=== PATIENT | female | born 1995 | race Caucasian/White ===

== ENCOUNTER 2021-04-09 05:41 | Emergency (ER) | payer OTHER ==
[~2021-04-09 05:41] MED LIST: COLACE 100MG C100 MG PO; IBUPROFEN600 MG PO; IMODIUM CAP 2 MG2 MG PO; NORCO 10-325 T1 EACH PO; PRENATAL VITAM1 EAC8 PO; ZOFRAN ODT 4 MG4 MG PO
[2021-04-09 06:32] LABS: HEMOGLOBIN 12.7 gm/dl (12.3-15.3); RED BLOOD COUNT 4.11 M/UL (4.00-5.10); WHITE BLOOD COUNT 7.3 K/UL (4.5-11.0)
[2021-04-09 06:56] LABS: BUN/CREATININE RATIO 18 (0-10)
[2021-04-09] MEDS ORDERED: CEPHALEXIN500 M1 PO (10:06)
[2021-06-01] MEDS ORDERED: PHENERGAN IM25 MG/ML IV (10:56)
== END 2021-04-09 10:25 | disposition home or self-care (01) ==
LOC: ER1 05:41
PROVIDERS: Emergency Medicine
DX: O20.0 Threatened abortion (principal); Z3A.16 16 weeks gestation of pregnancy; Z88.6 Allergy status to analgesic agent
CPT/HCPCS: 76815; 80053; 81001; 84702; 85025; 99284

== ENCOUNTER 2021-05-30 13:20 | Emergency (ER) | payer OTHER ==
[~2021-05-30] VITALS: Ht 157.5 cm; Wt 108.9 kg
[~2021-05-30 13:20] MED LIST changes: +CEPHALEXIN500 M1 PO
[2021-06-01] MEDS ORDERED: PHENERGAN IM25 MG/ML IV (10:56)
== END 2021-05-30 18:05 | disposition home or self-care (01) ==
LOC: ER1 13:20
DX: Z53.8 Procedure and treatment not carried out for other reasons (principal)
CPT/HCPCS: U0002

== ENCOUNTER 2021-08-24 18:16 | Observation (INO) | payer OTHER ==
[~2021-08-24 18:16] MED LIST changes: +PHENERGAN IM25 MG/ML IV
== END 2021-08-24 23:17 | disposition home or self-care (01) ==
LOC: GENOP 18:16 → OB 18:29
PROVIDERS: ADMIT Obstetrics & Gynecology
DX: O47.03 False labor before 37 completed weeks of gestation, third trimester (principal); O99.213 Obesity complicating pregnancy, third trimester; E66.9 Obesity, unspecified; Z3A.34 34 weeks gestation of pregnancy; Z20.822 Contact with and (suspected) exposure to COVID-19
CPT/HCPCS: 81001; 96372; G0378; J0702; U0002

== ENCOUNTER 2021-09-02 21:29 | Outpatient (CLI) | payer OTHER | END 2021-09-02 23:01 | disposition home or self-care (01) | LOC: GENOP 21:29 | DX: O47.03 False labor before 37 completed weeks of gestation, third trimester (principal); O99.891 Other specified diseases and conditions complicating pregnancy; O34.211 Maternal care for low transverse scar from previous cesarean delivery; O36.8130 Decreased fetal movements, third trimester, not applicable or unspecified; Z3A.36 36 weeks gestation of pregnancy; N89.8 Other specified noninflammatory disorders of vagina; O99.213 Obesity complicating pregnancy, third trimester; E66.9 Obesity, unspecified | CPT/HCPCS: 59025 ==

== ENCOUNTER 2021-09-23 07:34 | Inpatient (IN) | payer OTHER ==
[~2021-09-23] VITALS: Ht 157.5 cm; Wt 115.2 kg
[2021-09-23 08:10] LABS: HEMOGLOBIN 10.9 gm/dl (12.3-15.3); RED BLOOD COUNT 3.68 M/UL (4.00-5.10); WHITE BLOOD COUNT 9.8 K/UL (4.5-11.0)
[2021-09-23] MEDS ORDERED: PRENATAL VITAM1 EAC8 PO (08:15)
[2021-09-23] MEDS ORDERED: FERROUS SULFAT325 M2 PO (08:15)
[2021-09-23] MEDS ORDERED: HYDROCODON-ACE1 EAC4 PO (08:48)
[2021-09-23] MEDS ORDERED: IBU600 MG PO (08:48)
[2021-09-23] MEDS ORDERED: COLACE100 MG PO (08:48)
[2021-09-24 01:59] LABS: HEMOGLOBIN 8.8 gm/dl (12.3-15.3)
== END 2021-09-25 15:47 | disposition home or self-care (01) | DRG 788 ==
LOC: OB 07:34
PROVIDERS: ADMIT Obstetrics & Gynecology
PROC: 10D00Z1 Extraction of Products of Conception, Low, Open Approach (ICD-10-PCS; principal; 2021-09-23 12:30)
DX: O34.211 Maternal care for low transverse scar from previous cesarean delivery (principal); Z37.0 Single live birth; Z3A.39 39 weeks gestation of pregnancy; O99.214 Obesity complicating childbirth; E66.01 Morbid (severe) obesity due to excess calories; O36.63X0 Maternal care for excessive fetal growth, third trimester, not applicable or unspecified; O99.344 Other mental disorders complicating childbirth; F41.9 Anxiety disorder, unspecified; Z90.89 Acquired absence of other organs; Z98.890 Other specified postprocedural states; Z82.49 Family history of ischemic heart disease and other diseases of the circulatory system; Z83.3 Family history of diabetes mellitus
CPT/HCPCS: 36415; 81001; 82800; 85014; 85018; 85025; C9113; J0690; J1170; J1650; J2210; J2370; J2405; J2550; J2590; J2765; J7120